=== PATIENT | female | born 1995 | race Caucasian/White ===

== ENCOUNTER 2019-11-22 11:37 | Emergency (ER) | payer SELFPAY ==
[~2019-11-22] VITALS: Ht 170.2 cm; Wt 87.3 kg
[~2019-11-22 11:37] MED LIST: ALBU0.63 IH; PRENATAL ONE T1 EACH PO
[2019-11-22 11:40] VITALS: BP 116/70
[2019-11-22] MEDS ORDERED: AMOX875T PO (12:56)
--- NOTE | 2019-11-22 12:57 | PHYS DOC ---
Past Medical History Past Medical History: Asthma, Other Additional Past Medical Histor: preclampsia with Past Surgical History: Tonsillectomy Smoking Status: Current Every Day Smoker Additional Information: 06/19 ppd Alcohol Use: None Drug Use: None General Adult EDM: Chief Complaint: EARACHE/EAR PAIN HPI: HPI: Patient is a 24 year old female who presents to the ED today complaining of left ear pain rated as mild to moderate that began 4 days ago. Patient denies any exacerbating or relieving factors. She states she occasionally has difficulty hearing from the ear, she states she feels it is muffled. Denies any fever, coughing, congestion. Review of Systems: Review of Systems: Constitutional: Denies fever or chills. [] Eyes: Denies change in visual acuity. [] HENT: Reports left ear pain. Denies nasal congestion or sore throat. [] Respiratory: Denies cough or shortness of breath. [] Cardiovascular: Denies chest pain or edema. [] GI: Denies abdominal pain, nausea, vomiting, bloody stools or diarrhea. [] : Denies dysuria. [] Musculoskeletal: Denies back pain or joint pain. [] Integument: Denies rash. [] Neurologic: Denies headache, focal weakness or sensory changes. [] Psychiatric: Denies depression or anxiety. [] Heart Score: Risk Factors: Risk Factors: DM, Current or recent (<one month) smoker, HTN, HLP, family history of CAD, obesity. Risk Scores: Score 0 - 3: 2.5% MACE over next 6 weeks - Discharge Home Score 4 - 6: 20.3% MACE over next 6 weeks - Admit for Clinical Observation Score 7 - 10: 72.7% MACE over next 6 weeks - Early Invasive Strategies Allergies: Allergies: Allergies Coded Allergies Type Severity Reaction Last Updated Verified No Known Drug Allergies 11/22/19 No Physical Exam: PE: Constitutional: Well developed, well nourished, no acute distress, non-toxic appearance. [] HENT: Normocephalic, atraumatic, bilateral external ears normal, oropharynx moist, no oral exudates, nose normal. [] Left TM is moderately injected with effusion. Eyes: PERRLA, EOMI, conjunctiva normal, no discharge. [] Neck: Normal range of motion, no tenderness, supple, no stridor. [] Cardiovascular:Heart rate regular rhythm, no murmur [] Lungs & Thorax: Bilateral breath sounds clear to auscultation [] Abdomen: Bowel sounds normal, soft, no tenderness, no masses, no pulsatile masses. [] Skin: Warm, dry, no erythema, no rash. [] Back: No tenderness, no CVA tenderness. [] Extremities: No tenderness, no cyanosis, no clubbing, ROM intact, no edema. [] Neurologic: Alert and oriented X 3, normal motor function, normal sensory function, no focal deficits noted. [] Psychologic: Affect normal, judgement normal, mood normal. [] Current Patient Data: Vital Signs: Vital Signs Date Time Temp Pulse Resp B/P (MAP) Pulse Ox O2 Delivery O2 Flow Rate FiO2 11/22/19 11:40 97.4 86 16 116/70 (85) 99 Room Air 97.4 EKG: EKG: [] Radiology/Procedures: Radiology/Procedures: [] Course & Med Decision Making: Course & Med Decision Making Pertinent Labs and Imaging studies reviewed. (See chart for details) This is a 24-year-old female patient with otitis media with effusion. Discharged with amoxicillin. OTC pain relievers. ENT for follow-up. Comprehensive Care Disclaimer: Comprehensive Care Disclaimer: This electronic medical record was generated, in whole or in part, using a voice recognition dictation system. Departure Departure Impression: Primary Impression: Otitis media Qualified Codes: H66.002 - Acute suppurative otitis media without spontaneous rupture of ear drum, left ear Disposition: HOME, SELF-CARE Condition: STABLE Referrals: NO PCP (PCP) PORTILLO STEEN MD follow up in 1-2 weeks Patient Instructions: Otitis Media, Adult, [id number] Additional Instructions: You have left ear infection. Take the prescribed antibiotics until completed. You can take [id number] pain relievers including Tylenol or Motrin as needed for pain. You can also take a decongestant for 3 days. Follow-up with your own doctor or the provided ENT in 1 to 2 weeks Scripts Amoxicillin (AMOXICILLIN) 875 Mg Tablet 1 TAB PO BID, #20 TAB Prov: SAV MCCORMICK APRN 11/22/19 Justicifation of Admission Dx: Justifications for Admission: Justification of Admission Dx: N/A SAV MCCORMICK APRN Nov 22, 2019 12:56
== END 2019-11-22 12:59 | disposition home or self-care (01) ==
LOC: ER 11:37
DX: H66.002 Acute suppurative otitis media without spontaneous rupture of ear drum, left ear (principal); J45.909 Unspecified asthma, uncomplicated; F17.200 Nicotine dependence, unspecified, uncomplicated; Z90.89 Acquired absence of other organs
CPT/HCPCS: 99283